=== PATIENT | female | born 1995 | race American Indian/Alaskan Native ===

== ENCOUNTER 2019-08-19 15:40 | Emergency (ER) | payer OTHER, MEDICAID ==
--- NOTE | 2019-08-19 16:46 | Emergency Department Report ---
Chief Complaint: High BP Stated Complaint: 9WKS /HBP Time Seen by Provider: 08/19/19 16:39 - HPI History of Present Illness: Patient is a 24-year-old female, who is approximately 9 weeks , sent to the emergency room by her outpatient OB office for incidental asymptomatic and chronic hypertension. She takes labetalol 100 mg twice daily, and endorses compliance with her medications. She denies physical pain at this time. She denies all complaints at this time. Apparently, she was seen in her outpatient [facility] office, and was found to have a blood pressure systolic in the 170s. The patient indicates no caffeine intake, no stimulants, no energy drinks. The patient was seen in this department 2 days ago for symptoms suggestive of hyperemesis gravidarum versus nausea and vomiting in . She had a thorough and appropriate ER work-up, ultrasound, and was discharged with improvement in her clinical symptoms. Her ultrasound confirmed intrauterine . At the moment, she is resting comfortably, in no acute distress, with an unre markable physical exam. Blood pressure 145/84 mmHg, heart rate 107 bpm, temperature 98.4 F, respirations 16/min, saturating at 98% on room air. I contacted [facility] on-call, Dr. Ayala, and we discussed the patient's case, history, physical, laboratory findings from today and from previously this week. We both agree that the patient does not have an emergent obstetric condition at this time, and her elevated blood pressure does not meet definition criteria for preeclampsia, given that patient is only [address] Ayala advises that the patient continue her labetalol, 100 mg twice daily, and the patient can follow-up with her outpatient [facility] [facility]. The patient does not think that a physician or organic search lead sent her to the emergency room, but rather her nurse or technologist, she is not certain. In any event, the patient does not appear to have an emergent medical condition at this time, and she is suitable to follow-up as an outpatient. FINDINGS: Single, viable intrauterine . heart rate 170. [place]- rump length measures 2.5 cm, corresponding to a gestational age of 9 weeks 2 days. Ovaries are unremarkable. Left ovary contains a 3 cm cyst, also likely corpus luteal cyst. No free fluid. IMPRESSION: 1. Viable 9 week 2 day intrauterine . Signer Name: Tobias Magallanes MD Signed: 08/17/2019 1:20 PM Workstation Name: [id number] Transcribed By: TM Dictated By: Tobias Magallanes MD Electronically Authenticated By: Tobias Magallanes MD Signed Date/Time: 08/17/19 1320 MSE screening note: Focused history and physical exam performed. Due to findings the following was ordered: ED Disposition for MSE Condition: Stable Referrals: PRIMARY CARE, [Primary Care Provider] - 3-5 Days
== END 2019-08-19 17:00 | disposition home or self-care (01) ==
LOC: ED 15:40
DX: O16.1 Unspecified maternal hypertension, first trimester (principal); Z3A.09 9 weeks gestation of pregnancy; Z88.0 Allergy status to penicillin
CPT/HCPCS: 99281